=== PATIENT | female | born 2000 ===

== ENCOUNTER 2024-04-15 06:39 | Day surgery (SDC) | payer BC, SELFPAY ==
[2024-04-15] VITALS (10 sets, daily range): BP systolic 85–119; BP diastolic 51–71; BMI 21.0
[2024-04-15] MEDS: NORMOSOL-R/PLASMALYTE-A 1000 IV (08:36)
[2024-04-15] MEDS: DILAUDID 0.25 MG IV (10:25)
== END 2024-04-15 12:05 | disposition home or self-care (01) ==
LOC: SDS 06:39
PROVIDERS: ATTENDING PHYSICIAN Otolaryngology
DX: J35.01 Chronic tonsillitis (principal)
CPT/HCPCS: 42826; 88304